=== PATIENT | male | born 1935 ===

== ENCOUNTER 2017-08-15 10:20 | Emergency (ER) | payer MEDICARE ==
[2017-08-15 10:31] VITALS: RESP 18
[2017-08-15 10:33] VITALS: BMI 17.3
--- NOTE | 2017-08-15 11:14 | ED PDOC ---
HPI: Abdomen Time Seen by Provider: 08/15/17 10:38 Chief Complaint (Nursing): Abdominal Pain Chief Complaint (Provider): Abdominal Pain History Per: Patient History/Exam Limitations: no limitations Onset/Duration Of Symptoms: Other (1 year) Current Symptoms Are (Timing): Constant Quality Of Discomfort: "Pain" Associated Symptoms: denies: Fever, Nausea, Vomiting, Constipation Additional Complaint(s): 82 year old male with a PMHx of emphysema and hypertension presents to the ED complaining of constant abdominal pain onset for 1 year. Patient was admitted and discharged from [facility] on August 13, 2017. He has been compliant with Pepcid and Flagyl. He had a follow-up with GI specialist, Dr. Munguia and scheduled for 3 endoscopy for which he refused. Denies fever, nausea, vomiting, or constipation. PMD: Vicenta Mendoza Past Medical History Reviewed: Historical Data, Nursing Documentation, Vital Signs Vital Signs: Last Vital Signs Temp 98.1 F 08/15/17 15:15 Pulse 100 H 08/15/17 15:15 Resp 18 08/15/17 15:15 BP 155/96 H 08/15/17 15:15 Pulse Ox 100 08/15/17 15:15 - Medical History PMH: Emphysema, HTN - Family History Family History: States: Unknown Family Hx - Social History Ex-Smoker (has not smoked in the last 12 months): Yes Alcohol: None - Allergies Allergies/Adverse Reactions: Allergies Allergy/AdvReac Type Severity Reaction Status Date / Time No Known Allergies Allergy Verified 08/15/17 10:46 Review of Systems ROS Statement: Except As Marked, All Systems Reviewed And Found Negative Constitutional: Negative for: Fever Gastrointestinal: Positive for: Abdominal Pain. Negative for: Nausea, Vomiting , Constipation Physical Exam - Reviewed Nursing Documentation Reviewed: Yes Vital Signs Reviewed: Yes - Physical Exam Appears: Positive for: Well, Non-toxic, No Acute Distress Head Exam: Positive for: ATRAUMATIC, NORMAL INSPECTION, NORMOCEPHALIC Skin: Positive for: Normal Color, Warm, Dry Eye Exam: Positive for: EOMI, Normal appearance, PERRL ENT: Positive for: Normal ENT Inspection Neck: Positive for: Normal, Painless ROM, Supple. Negative for: Decreased ROM Cardiovascular/Chest: Positive for: Regular Rate, Rhythm. Negative for: Murmur Respiratory: Positive for: Normal Breath Sounds. Negative for: Decreased Breath Sounds, Wheezing, Respiratory Distress Gastrointestinal/Abdominal: Positive for: Normal Exam, Bowel Sounds, Soft. Negative for: Tenderness, Guarding, Rebound Back: Positive for: Normal Inspection. Negative for: L CVA Tenderness, R CVA Tenderness Extremity: Positive for: Normal ROM. Negative for: Tenderness, Pedal Edema, Deformity Neurologic/Psych: Positive for: Alert, Oriented (x3). Negative for: Motor/ Sensory Deficits - Laboratory Results Result Diagrams: 08/15/17 11:10 08/15/17 11:10 - ECG O2 Sat by Pulse Oximetry: 98 (RA) Pulse Ox Interpretation: Normal - Physician Consult Information Time Consulting Physican Contacted: 15:00 Physician Contacted: Marshall Clayton Outcome Of Conversation: Case discussed with Dr. Clayton (covering for Dr. Munguia), send to office after discharge, will be there until 4 PM. Medical Decision Making Medical Decision Making: Time: 1050 Initial Impression: chronic abdominal pain Initial Plan: --Abd & Pelvis IV Contrast CT --EKG --CMP --Lipase --ED Urine dipstick --CBC w/ Differential --PTT --Prothrombin Time --Urinalysis --Reevaluation 14:32 CT abd/pelvis FINDINGS: LOWER THORAX: Limited bullous changes seen the medial right lower lobe base, minimal at the left. No pleural pericardial effusion. Slightly elevated left hemidiaphragm noted. Mild cardiomegaly. LIVER: Diminished attenuation of the liver is compatible with hepatic steatosis. No discrete hepatic mass or intrahepatic biliary tree dilatation appreciable. GALLBLADDER AND BILE DUCTS: Distended gallbladder which is otherwise unremarkable appearing. PANCREAS: Unremarkable. No gross lesion or ductal dilatation. SPLEEN: Unremarkable. ADRENALS: Unremarkable. No mass. KIDNEYS AND URETERS: 4.0 cm simple cyst exophytic off the upper midpole left kidney laterally. Multiple tiny lucencies are scattered at the left greater than right renal parenchyma which are too small to characterize. No obstructive uropathy bilaterally or radiodense urolithiasis. . VASCULATURE: Atherosclerotic abdominal aorta is appreciated which is ectatic distally with an infrarenal fusiform segment minimally dilated up to 2.7 cm. Atherosclerotic nonaneurysmal bilateral common, internal and external iliac arteries are identified. BOWEL: Stomach is collapsed and not well evaluated. Mural thickening of the antrum is not excluded. Prominent fecal loading seen in the ascending and transverse large -bowel segments with extensive sigmoid greater than descending colonic segmental diverticular changes. No acute pattern to suggest diverticulitis at this time. Developing console stent patient is in question. APPENDIX: Not clearly identified. No CT pattern suggest appendicitis at this time. PERITONEUM: Unremarkable. No free fluid. No free air. LYMPH NODES: Unremarkable. No enlarged lymph nodes. BLADDER: Unremarkable. REPRODUCTIVE: Mildly enlarged prostate gland. BONES: No acute fracture. OTHER FINDINGS: None. IMPRESSION: 1. Stomach is collapsed and poorly evaluated however mural thickening in the antrum is difficult to exclude. Consider potential gastritis or even underlying process such is ulcer though none is clearly demonstrated in this exam. 2. Developing constipation suggested. No bowel obstruction appreciable. Left colonic diverticulosis without diverticulitis. 3. Distended but otherwise unremarkable appearing gallbladder. 4. Hepatic steatosis. 5. Enlarged prostate gland. 13:00 Plan to go directly to Dr. Clayton' office immediately after discharge explained to patient and POA, understands and will do so. Scribe Attestation: Documented by Chuck Ying and Beto Rodriguez, acting as a scribe for Haily Jalloh MD Provider Scribe Attestation: All medical record entries made by the Scribe were at my direction and personally dictated by me. I have reviewed the chart and agree that the record accurately reflects my personal performance of the history, physical exam, medical decision making, and the department course for this patient. I have also personally directed, reviewed, and agree with the discharge instructions and disposition. Disposition - Clinical Impression Clinical Impression: Gastritis - Disposition Referrals: Marshall Clayton MD, PhD [Staff Provider] - Disposition: Routine/Home (Dr. Clayton' office) Disposition Time: 13:05 Condition: STABLE Instructions: Gastritis Forms: [employer] ([place])
[2017-08-15] MEDS ORDERED: Iohexol 300 100 ML IJ ONE (11:28)
[2017-08-15] MEDS ORDERED: Sodium Chloride 0.9% 50 ML IV ONE (11:28)
[2017-08-15 11:35] LABS: BASO % 0.5 % (0.0-2.0); EOS # 0.1 K/uL (0.0-0.7); EOS % 1.2 % (0.0-4.0); HEMOGLOBIN 12.6 g/dL (12.0-18.0); LYMPH # 0.8 K/uL (1.0-4.3); LYMPH % 13.1 % (20.0-40.0); MEAN CELL VOLUME 95.8 fl (80.0-94.0); MEAN CORPUSCULAR HEMOGLOBIN 31.6 pg (27.0-31.0); MEAN PLATELET VOLUME 8.2 fl (7.2-11.7); MONO # 0.6 K/uL (0.0-0.8); NEUT # 4.8 K/uL (1.8-7.0); NEUT % 75.2 % (50.0-75.0); RBC 3.99 Mil/uL (4.40-5.90); RED CELL DISTRIBUTION WIDTH 14.6 % (11.5-14.5); WHITE BLOOD COUNT 6.4 K/uL (4.8-10.8)
[2017-08-15 11:37] LABS: ALB/GLOB RATIO 1.3 (1.0-2.1); ALT/SGPT 48 U/L (21-72); AST/SGOT 49 U/L (17-59); BLOOD UREA NITROGEN 29 mg/dl (9-20); CALCIUM 9.4 mg/dL (8.4-10.2); GFR AFRICAN-AMERICAN > 60; GFR NON-AFRICAN AMERICAN > 60; LIPASE 84 U/L (23-300)
[2017-08-15 11:40] LABS: PARTIAL THROMBOPLASTIN TIME 30.9 Seconds (25.6-37.1); PROTHROMBIN TIME 11.3 Seconds (9.8-13.1)
[2017-08-15 11:59] LABS: URINE BILIRUBIN NEGATIVE (NEGATIVE); URINE BLOOD NEGATIVE (NEGATIVE); URINE CLARITY SLIGHTY-CLOUDY (Clear); URINE COLOR YELLOW (YELLOW); URINE GLUCOSE (UA) NEG (Normal); URINE LEUKOCYTE ESTERASE TRACE Leu/uL (Negative); URINE PROTEIN NEGATIVE (NEGATIVE); URINE UROBILINOGEN 0.2-1.0 mg/dL (0.2-1.0)
--- NOTE | 2017-08-15 14:33 | CT ---
PROCEDURE: CT Abdomen and Pelvis with contrast HISTORY: Upper abd pain COMPARISON: None available. TECHNIQUE: Contrast dose: Omnipaque 300, 95 cc Radiation dose: Total exam DLP = 170.42 mGy-cm. This CT exam was performed using one or more of the following dose reduction techniques: Automated exposure control, adjustment of the mA and/or kV according to patient size, and/or use of iterative reconstruction technique. FINDINGS: LOWER THORAX: Limited bullous changes seen the medial right lower lobe base, minimal at the left. No pleural pericardial effusion. Slightly elevated left hemidiaphragm noted. Mild cardiomegaly. LIVER: Diminished attenuation of the liver is compatible with hepatic steatosis. No discrete hepatic mass or intrahepatic biliary tree dilatation appreciable. GALLBLADDER AND BILE DUCTS: Distended gallbladder which is otherwise unremarkable appearing. PANCREAS: Unremarkable. No gross lesion or ductal dilatation. SPLEEN: Unremarkable. ADRENALS: Unremarkable. No mass. KIDNEYS AND URETERS: 4.0 cm simple cyst exophytic off the upper midpole left kidney laterally. Multiple tiny lucencies are scattered at the left greater than right renal parenchyma which are too small to characterize. No obstructive uropathy bilaterally or radiodense urolithiasis. . VASCULATURE: Atherosclerotic abdominal aorta is appreciated which is ectatic distally with an infrarenal fusiform segment minimally dilated up to 2.7 cm. Atherosclerotic nonaneurysmal bilateral common, internal and external iliac arteries are identified. BOWEL: Stomach is collapsed and not well evaluated. Mural thickening of the antrum is not excluded. Prominent fecal loading seen in the ascending and transverse large-bowel segments with extensive sigmoid greater than descending colonic segmental diverticular changes. No acute pattern to suggest diverticulitis at this time. Developing console stent patient is in question. APPENDIX: Not clearly identified. No CT pattern suggest appendicitis at this time. PERITONEUM: Unremarkable. No free fluid. No free air. LYMPH NODES: Unremarkable. No enlarged lymph nodes. BLADDER: Unremarkable. REPRODUCTIVE: Mildly enlarged prostate gland. BONES: No acute fracture. OTHER FINDINGS: None. IMPRESSION: 1. Stomach is collapsed and poorly evaluated however mural thickening in the antrum is difficult to exclude. Consider potential gastritis or even underlying process such is ulcer though none is clearly demonstrated in this exam. 2. Developing constipation suggested. No bowel obstruction appreciable. Left colonic diverticulosis without diverticulitis. 3. Distended but otherwise unremarkable appearing gallbladder. 4. Hepatic steatosis. 5. Enlarged prostate gland.
--- NOTE | 2017-08-15 14:55 | CARD ---
APPROVED REPORT EKG Measurement Heart [id number] <Conclusion> Normal sinus rhythm Voltage criteria for left ventricular hypertrophy Cannot rule out Septal infarct, age undetermined Cannot rule out Inferior infarct, age undetermined Abnormal ECG
[2017-08-15 15:26] VITALS: BP 155/96; PULSE 100; TEMP 98.1
[2017-08-17 13:32] VITALS: O2SAT 98
== END 2017-08-15 15:15 | disposition home or self-care (01) ==
LOC: H.ER 10:20
DX: K29.70 Gastritis, unspecified, without bleeding (principal); G89.29 Other chronic pain; I10 Essential (primary) hypertension; J43.9 Emphysema, unspecified
CPT/HCPCS: 74177; 80053; 81003; 83690; 85025; 85610; 85730; 93005; 99285; Q9967